=== PATIENT | female | born 1940 | race Caucasian/White ===

== ENCOUNTER → 2016-05-17 | Outpatient (CLI) | payer OTHER ==
--- NOTE | 2016-05-17 16:04 | MAMMOGRAPHY REPORT ---
BILATERAL DIGITAL SCREENING MAMMOGRAM WITH CAD: 05/17/2016 CLINICAL HISTORY: Routine screening. Patient has no complaints. TECHNIQUE: Bilateral CC, MLO and repeat right MLO views were obtained. Current study was also eval uated with a Computer Aided Detection (CAD) system. COMPARISON: Comparison is made to exams dated: 01/07/2014 mammogram, 02/01/2012 mammogram, 06/17/2010 mammogram, 02/26/2009 mammogram - [facility], and 02/26/2008. BREAST COMPOSITION: There are scattered areas of fibroglandular density in both breasts. FINDINGS: There is a newly visualized 5.3 mm mass in the upper outer anterior right breast, for whi ch additional spot compression tomosynthesis views and targeted ultrasound are recommended. There are stable benign-appearing coarse calcifications within the right breast. A stable lobulated 11 mm mass in the lower inner anterior right breast is unchanged in size dating back to at least , therefore likely benign. No other suspicious mass, architectural distortion or cluster of microcalcifications is seen. IMPRESSION: ACR BI-RADS CATEGORY 0: INCOMPLETE EVALUATION: NEED ADDITIONAL IMAGING EVALUATION The newly visualized 5.3 mm mass in the upper outer anterior right breast needs additional evaluatio n. The patient will be called to schedule an appointment. Approximately 10% of breast cancers are not detected with mammography. A negative mammographic repor t should not delay biopsy if a clinically suggestive mass is present. Vanessa Hyatt M.D. ay/:05/17/2016 15:35:57 Relay Tester: Erendira POSADA(R)(Josephine), [facility] letter sent: Addl Imaging 0 BI-RADS Code: ACR BI-RADS Category 0: Incomplete Evaluation: Need Additional Imaging Evaluation
== END | disposition home or self-care (01) ==
LOC: C.MAMM 14:08
PROVIDERS: ATTEND Family Medicine
DX: Z12.31 Encounter for screening mammogram for malignant neoplasm of breast (principal); N63 Unspecified lump in breast